=== PATIENT | female | born 1940 | race African-American/Black ===

== ENCOUNTER 2019-02-25 19:23 | Emergency (ER) | payer MEDICARE ==
--- NOTE | 2019-02-25 21:07 | RAD ---
RIGHT SHOULDER FOUR VIEWS: History: Fall. Right shoulder injury. FINDINGS: Acromioclavicular and glenohumeral alignment are maintained. Mild osteophytosis. No acute fracture or dislocation. IMPRESSION: Mild degenerative changes right shoulder. No acute osseous abnormalities are demonstrated. POS: BST
--- NOTE | 2019-02-25 21:08 | RAD ---
LEFT SHOULDER THREE VIEWS: History: Fall. Left shoulder injury. FINDINGS: Acromioclavicular and glenohumeral alignment are maintained. No acute fracture or dislocation. IMPRESSION: No acute osseous abnormalities are demonstrated. POS: BST
--- NOTE | 2019-02-25 21:11 | RAD ---
XR Hip Lt 2-3 View INDICATION: Ground-level fall with left hip pain COMPARISON: None FINDINGS: Bones: There is a valgus impacted left subcapital femoral neck fracture. No additional fracture is ev ident. Hip joint: Moderate degenerative arthrosis of the left hip. SI joints and symphysis pubis: There is mild degenerative change of the visualized left SI joint. Intrapelvic contents: Visualized bowel gas pattern is within normal limits. Surrounding soft tissues: Radiographically normal. IMPRESSION: 1. Valgus impacted subcapital left femoral neck fracture.
--- NOTE | 2019-02-25 21:16 | RAD ---
XR Knee Lt 4 View STANDARD: 02/25/2019 8:02 PM CLINICAL INDICATION: Ground-level fall with left knee pain COMPARISON: None. FINDINGS: Bones: No acute fracture is demonstrated. Joints: There is severe degenerative arthrosis involving the left knee.. Soft Tissue: No acute abnormality.. IMPRESSION: No acute fracture or subluxation demonstrated. Severe left knee osteoarthrosis.
[2019-02-25] MEDS ORDERED: Ondansetron PF 4 MG/2 ML Vial ONE (21:30)
[2019-02-25] MEDS ORDERED: Sodium Chloride 0.9% 1,000 ML ONE (21:30)
[2019-02-25 21:43] LABS: #Basophils 0.1 thou/uL (0.0-0.2); #Eosinphils 0.7 thou/uL (0.0-0.7); #Lymphocytes 2.5 thou/uL (1.20-3.40); #Monocytes 0.6 thou/uL (0.11-0.59); %Basophils 1.6 % (0.0-1.0); %Eosinophils 7.7 % (0.0-10.0); %Lymphocytes 27.6 % (21.0-51.0); %Monocytes 7.1 % (0.0-10.0); %Neutrophils 55.9 % (42.0-75.0); Hemoglobin 12.9 g/dL (12.0-16.0); Mean Corpuscular HGB CONC 30.1 g/dL (32.0-36.0); Mean Corpuscular Hemoglobin 25.9 pg (27.0-31.0); Mean Platelet Volume 10.6 fL (7.4-10.4); Platelet Count 130 thou/uL (130-400); RBC Distribution Width 13.7 % (11.5-14.5); Red Blood Cell (RBC) Count 4.99 mill/uL (4.20-5.40)
[2019-02-25] MEDS ORDERED: Morphine 2 MG/ML SYRINGE ONE ×2 (21:47→22:40)
[2019-02-25 21:52] LABS: Prothrombin Time 13.2 SEC (12.0-14.7)
[2019-02-25 21:53] LABS: PTT 33.7 SEC (22.9-36.1)
[2019-02-25 22:02] LABS: ALT (SGPT) 14 U/L (8-55); AST (SGOT) 19 U/L (5-34); Albumin 3.9 g/dL (3.4-4.8); Alkaline Phosphatase 77 U/L (40-110); Anion Gap 13 mmol/L (10-20); BUN (Urea Nitrogen) 18 mg/dL (9.8-20.1); Bilirubin, Total 0.5 mg/dL (0.2-1.2); Calc. Creatinine Clearance 0 mL/min (70-130); Calcium 9.6 mg/dL (7.8-10.44); Carbon Dioxide 25 mmol/L (23-31); Chloride 107 mmol/L (98-107); Estimated GFR-MDRD 85; Globulin 3.4 g/dL (2.4-3.5); Glucose 99 mg/dL (83-110); Potassium 3.8 mmol/L (3.5-5.1); Protein, Total 7.3 g/dL (6.0-8.3); Sodium 141 mmol/L (136-145)
[2019-02-25 23:46] LABS: Bilirubin Negative (Negative); Blood, Urine Small (Negative); Clarity Slightly Cloudy (Clear); Glucose, Urine (Dipstick) Negative (Negative); Leukocyte Large (Negative); Nitrite Negative (Negative); Protein, Urine (Dipstick) Negative (Neg-Trace); Urobilinogen 0.2 mg/dL (Less than 2)
[2019-02-25 23:56] LABS: WBC/HPF Greater Than 50 HPF (0-3)
[2019-02-25 23:57] LABS: Bacteria/HPF 1+ HPF (None Seen)
== END 2019-02-25 23:34 | disposition short-term general hospital (02) ==
LOC: MADERS 19:23
DX: S72.012A Unspecified intracapsular fracture of left femur, initial encounter for closed fracture (principal); I10 Essential (primary) hypertension; Z79.899 Other long term (current) drug therapy; W18.30XA Fall on same level, unspecified, initial encounter
CPT/HCPCS: 80053; 81003; 81015; 85025; 85610; 85730; 96361; 96374; 96375; 96376; J2270; J2405; J7050

== ENCOUNTER 2019-02-28 13:04 | Inpatient (IN) | payer MEDICARE ==
[2019-02-28] MEDS ORDERED: Cyclobenzaprine 10 MG TAB PO PRN (17:40)
[2019-02-28] MEDS ORDERED: traMADol HCl 50 MG TAB PO PRN ×2 (17:40)
[2019-02-28] MEDS: Acetaminophen 500 MG TAB PO SCH (21:16)
[2019-02-28] MEDS: Gabapentin 100 MG CAP PO SCH (21:16)
[2019-02-28] MEDS: Aspirin 81 mg Enteric Coated Tablet PO SCH (21:17)
--- NOTE | 2019-03-01 00:42 | HP ---
PRIMARY CARE PHYSICIAN: Out of [facility]. ORTHOPEDICS: Dr. Mendez. REASON FOR ADMISSION: [facility] for rehab. HISTORY OF THE PRESENT ILLNESS AND HOSPITAL COURSE: Ms. Aquino is a very pleasant 79-year-old female who had a fall at home from standing position on 02/24/2019. The patient did not go to the hospital right away. The patient reported persistent pain over the left hip area, thus she went to [facility] ER on 02/26/2019 and found out to have a left femoral neck fracture and subsequently admitted. The patient underwent left hip hemiarthroplasty on 02/26/2019, done by Dr. Mendez. The patient had unremarkable postoperative course. She was evaluated by Physical Therapy, Occupational Therapy in [facility] and was found to be a good candidate for further skilled rehab with us. She was transferred to [facility] to continue therapy. The patient reports pain is adequately controlled with current medication. She is on tramadol that she uses p.r.n. She also reports she has not had any bowel movement since the operation, but just had one today upon admission. The patient was noted to have some memory gap. She could not recall the name of her PCP out in [place]. She could not contribute much to her history. She states that she has been sleeping the whole time she got admitted this afternoon in [facility] and her head is "not just right" at this time. No other issues reported at this point. Barton catheter was removed upon admission, and the patient is currently voiding freely with clear output. PAST MEDICAL HISTORY: Hypertension, seasonal allergies. PAST SURGICAL HISTORY: None, except for this recent left hip hemiarthroplasty. ALLERGIES: TO SULFA DRUGS AND LATEX. MEDICATIONS: 1. Lisinopril 10 mg p.o. daily. 2. Gabapentin 200 mg p.o. b.i.d. 3. Cyclobenzaprine 5 mg p.o. t.i.d. p.r.n. 4. Aspirin 81 mg p.o. b.i.d. 5. Acetaminophen 1000 mg p.o. q.6 h. as scheduled. REVIEW OF SYSTEMS: GENERAL: Reports fatigue and general weakness. No fever, no chills, no loss of appetite. HEENT: No acute visual changes or hearing changes. No cold symptoms. RESPIRATORY: No cough, sputum production, pain with breathing, shortness of breath or wheezing. CARDIAC: No chest pain, palpitations, edema, cyanosis, dyspnea on exertion, or paroxysmal nocturnal dyspnea. GI: No nausea, vomiting, abdominal pain, diarrhea, rectal bleeding. GENITOURINARY: No dysuria, hematuria, frequency, urgency or incontinence. MUSCULOSKELETAL: Reports left hip pain as per HPI. No other erythema or joint effusions reported. NEURO: No focal weakness, paresthesia. Reports abnormality of gait secondary to recent orthopedic repair. SKIN: No rashes. No lesions. No pruritus. PSYCH: No depressive symptoms, anxiety, insomnia. LABORATORY DATA: Most recent lab, 02/27/2019, WBC 9.4, hemoglobin 12.3, hematocrit 37.4, platelets 159. Chemistry on 02/26/2019, sodium 140, potassium 3.5, BUN 15 , creatinine 0.72, glucose 89, calcium 8.4, phosphorus 3.2, magnesium 2.2. PHYSICAL EXAMINATION: VITAL SIGNS: Blood pressure 184/82, temperature 98.4, pulse 73, respirations 16 , O2 saturations 92% on room air. GENERAL: The patient is awake, alert, and oriented x3, not in distress, comfortable on exam. Sister is at bedside. HEENT: Normocephalic, atraumatic. PERRL. Intact EOM. Anicteric sclerae. Oral mucosa is moist. Tongue at midline. NECK: Supple. Full range of motion. No LAD. No JVD. No bruit. CHEST: Normal excursion. Clear to auscultation bilaterally. CARDIAC: RRR. Normal S1 and S2. No murmurs. ABDOMEN: Flat, soft. Normoactive bowel sounds. Nondistended, nontender. Negative CVA tenderness bilaterally. EXTREMITIES: No edema. No cyanosis. SKIN: Postoperative site in the left lateral hip is intact and dry. No exudates, no drainage. No surrounding erythema. Mildly tender to touch. NEURO: Nonfocal. Gait, unsteady. ASSESSMENT: 1. Status post mechanical fall with delayed presentation. 2. Status post open reduction and internal fixation of left femoral neck fracture secondary to fall. 3. Hypertension. 4. Deconditioning. 5. Unsteady gait. PLAN: 1. The patient is admitted to [facility] for purposes of skilled rehab status post hip repair. The patient is to continue her current medications as per transfer list. DVT prophylaxis with low-dose aspirin b.i.d. GI prophylaxis with PPI. 2. We will continue to monitor patient's overall status and other chronic medical conditions. We will continue to monitor other conditions that will affect the patient's potential for rehab including constipation and pain management. 3. Staple removal on March 12 per ortho recommendations. 4. To set up a followup appointment with Ortho as recommended. 5. Further recommendations depending on hospital course. CODE STATUS: The patient reports FULL CODE. ESTIMATED LENGTH OF STAY: 2 to 3 weeks. Job ID: [id number] MTDD
[2019-03-01] MEDS: Acetaminophen 500 MG TAB PO SCH ×4 (02:41→21:00)
[2019-03-01] MEDS: Aspirin 81 mg Enteric Coated Tablet PO SCH ×2 (08:50→21:00)
[2019-03-01] MEDS: Lisinopril 10 MG TAB PO SCH (08:51)
[2019-03-01] MEDS: Gabapentin 100 MG CAP PO SCH ×2 (08:52→21:00)
[2019-03-01] MEDS: Polyethylene Glycol 3350 17 GM Packet PER TUBE SCH (08:54)
[2019-03-01] MEDS ORDERED: diphenhydrAMINE 25 MG CAP PO SCH ×2 (23:00→23:15)
[2019-03-02] MEDS: Acetaminophen 500 MG TAB PO SCH ×4 (02:48→19:05)
[2019-03-02] MEDS: Gabapentin 100 MG CAP PO SCH ×2 (09:16→20:54)
[2019-03-02] MEDS: Lisinopril 10 MG TAB PO SCH (09:16)
[2019-03-02] MEDS: Polyethylene Glycol 3350 17 GM Packet PER TUBE SCH (09:16)
[2019-03-02] MEDS: Aspirin 81 mg Enteric Coated Tablet PO SCH ×2 (09:16→20:54)
[2019-03-02] MEDS: Docusate 100 MG CAP PO SCH (20:54)
[2019-03-03] MEDS: Acetaminophen 500 MG TAB PO SCH ×4 (01:43→21:39)
[2019-03-03 05:50] LABS: Anion Gap 13 mmol/L (10-20); BUN (Urea Nitrogen) 16 mg/dL (9.8-20.1); Calc. Creatinine Clearance 84 mL/min (70-130); Calcium 8.5 mg/dL (7.8-10.44); Carbon Dioxide 27 mmol/L (23-31); Chloride 106 mmol/L (98-107); Estimated GFR-MDRD Greater than 90; Glucose 88 mg/dL (83-110); Potassium 3.9 mmol/L (3.5-5.1); Sodium 142 mmol/L (136-145)
[2019-03-03] MEDS: Lisinopril 10 MG TAB PO SCH (08:18)
[2019-03-03] MEDS: Docusate 100 MG CAP PO SCH ×2 (08:19→21:39)
[2019-03-03] MEDS: Gabapentin 100 MG CAP PO SCH ×2 (08:19→21:39)
[2019-03-03] MEDS: Aspirin 81 mg Enteric Coated Tablet PO SCH ×2 (08:19→21:39)
[2019-03-03] MEDS: Polyethylene Glycol 3350 17 GM Packet PER TUBE SCH (08:20)
[2019-03-04] MEDS: Acetaminophen 500 MG TAB PO SCH ×4 (02:32→19:36)
[2019-03-04] MEDS: Polyethylene Glycol 3350 17 GM Packet PER TUBE SCH (08:28)
[2019-03-04] MEDS: Aspirin 81 mg Enteric Coated Tablet PO SCH ×2 (08:29→20:22)
[2019-03-04] MEDS: Lisinopril 10 MG TAB PO SCH (08:29)
[2019-03-04] MEDS: Docusate 100 MG CAP PO SCH ×2 (08:29→20:22)
[2019-03-04] MEDS: Gabapentin 100 MG CAP PO SCH ×2 (08:29→20:22)
[2019-03-05] MEDS: Acetaminophen 500 MG TAB PO SCH ×4 (02:36→20:58)
[2019-03-05] MEDS: Docusate 100 MG CAP PO SCH ×2 (08:28→20:58)
[2019-03-05] MEDS: Lisinopril 10 MG TAB PO SCH (08:28)
[2019-03-05] MEDS: Gabapentin 100 MG CAP PO SCH ×2 (08:28→20:59)
[2019-03-05] MEDS: Aspirin 81 mg Enteric Coated Tablet PO SCH ×2 (08:29→20:58)
[2019-03-05] MEDS: Polyethylene Glycol 3350 17 GM Packet PER TUBE SCH (08:29)
[2019-03-06] MEDS: Acetaminophen 500 MG TAB PO SCH ×4 (03:08→20:32)
[2019-03-06] MEDS: Gabapentin 100 MG CAP PO SCH ×2 (08:20→20:33)
[2019-03-06] MEDS: Polyethylene Glycol 3350 17 GM Packet PER TUBE SCH (08:21)
[2019-03-06] MEDS: Aspirin 81 mg Enteric Coated Tablet PO SCH ×2 (08:21→20:34)
[2019-03-06] MEDS: Docusate 100 MG CAP PO SCH ×2 (08:21→20:33)
[2019-03-06] MEDS: Lisinopril 10 MG TAB PO SCH (08:21)
[2019-03-07] MEDS: Acetaminophen 500 MG TAB PO SCH ×4 (02:08→21:07)
[2019-03-07] MEDS: Polyethylene Glycol 3350 17 GM Packet PER TUBE SCH (08:04)
[2019-03-07] MEDS: Gabapentin 100 MG CAP PO SCH ×2 (08:05→21:07)
[2019-03-07] MEDS: Lisinopril 10 MG TAB PO SCH (08:05)
[2019-03-07] MEDS: Aspirin 81 mg Enteric Coated Tablet PO SCH ×2 (08:05→21:07)
[2019-03-07] MEDS: Docusate 100 MG CAP PO SCH ×2 (08:09→21:07)
[2019-03-07] MEDS ORDERED: Triamcinolone 0.1% Cream 15 GM TUBE TOP PRN (19:25)
[2019-03-08] MEDS: Acetaminophen 500 MG TAB PO SCH ×4 (02:15→21:42)
[2019-03-08] MEDS: Polyethylene Glycol 3350 17 GM Packet PER TUBE SCH (08:45)
[2019-03-08] MEDS: Aspirin 81 mg Enteric Coated Tablet PO SCH ×2 (08:46→21:42)
[2019-03-08] MEDS: Docusate 100 MG CAP PO SCH ×2 (08:46→21:42)
[2019-03-08] MEDS: Lisinopril 10 MG TAB PO SCH (08:46)
[2019-03-08] MEDS: Gabapentin 100 MG CAP PO SCH ×2 (08:46→21:42)
[2019-03-09] MEDS: Acetaminophen 500 MG TAB PO SCH ×4 (03:20→20:59)
[2019-03-09] MEDS: Aspirin 81 mg Enteric Coated Tablet PO SCH ×2 (07:56→20:59)
[2019-03-09] MEDS: Polyethylene Glycol 3350 17 GM Packet PER TUBE SCH (07:56)
[2019-03-09] MEDS: Docusate 100 MG CAP PO SCH ×2 (07:56→21:00)
[2019-03-09] MEDS: Lisinopril 10 MG TAB PO SCH (07:56)
[2019-03-09] MEDS: Gabapentin 100 MG CAP PO SCH ×2 (07:56→21:00)
[2019-03-10] MEDS: Acetaminophen 500 MG TAB PO SCH ×4 (03:07→21:10)
[2019-03-10] MEDS: Gabapentin 100 MG CAP PO SCH ×2 (08:08→21:10)
[2019-03-10] MEDS: Aspirin 81 mg Enteric Coated Tablet PO SCH ×2 (08:09→21:10)
[2019-03-10] MEDS: Polyethylene Glycol 3350 17 GM Packet PER TUBE SCH (08:09)
[2019-03-10] MEDS: Docusate 100 MG CAP PO SCH ×2 (08:09→21:10)
[2019-03-10] MEDS: Lisinopril 10 MG TAB PO SCH (08:09)
[2019-03-11] MEDS: Acetaminophen 500 MG TAB PO SCH ×4 (02:01→20:39)
[2019-03-11] MEDS: Lisinopril 10 MG TAB PO SCH (09:03)
[2019-03-11] MEDS: Aspirin 81 mg Enteric Coated Tablet PO SCH ×2 (09:04→20:39)
[2019-03-11] MEDS: Docusate 100 MG CAP PO SCH ×2 (09:04→20:40)
[2019-03-11] MEDS: Gabapentin 100 MG CAP PO SCH ×2 (09:04→20:40)
[2019-03-11] MEDS: Polyethylene Glycol 3350 17 GM Packet PER TUBE SCH (09:04)
[2019-03-11 11:38] VITALS: BMI 29.5
[2019-03-12] MEDS: Acetaminophen 500 MG TAB PO SCH ×4 (02:02→20:03)
[2019-03-12] MEDS: Docusate 100 MG CAP PO SCH ×2 (08:29→20:05)
[2019-03-12] MEDS: Gabapentin 100 MG CAP PO SCH ×2 (08:29→20:04)
[2019-03-12] MEDS: Lisinopril 10 MG TAB PO SCH (08:29)
[2019-03-12] MEDS: Polyethylene Glycol 3350 17 GM Packet PER TUBE SCH (08:29)
[2019-03-12] MEDS: Aspirin 81 mg Enteric Coated Tablet PO SCH ×2 (08:30→20:05)
[2019-03-13] MEDS: Acetaminophen 500 MG TAB PO SCH ×4 (01:38→20:35)
[2019-03-13] MEDS: Lisinopril 10 MG TAB PO SCH (08:48)
[2019-03-13] MEDS: Docusate 100 MG CAP PO SCH ×2 (08:48→20:29)
[2019-03-13] MEDS: Aspirin 81 mg Enteric Coated Tablet PO SCH ×2 (08:48→20:29)
[2019-03-13] MEDS: Polyethylene Glycol 3350 17 GM Packet PER TUBE SCH (08:48)
[2019-03-13] MEDS: Gabapentin 100 MG CAP PO SCH ×2 (08:49→20:30)
[2019-03-13] MEDS ORDERED: Acetaminophen 500 MG TAB PO PRN (20:13)
[2019-03-14] MEDS: Aspirin 81 mg Enteric Coated Tablet PO SCH ×2 (08:35→21:31)
[2019-03-14] MEDS: Polyethylene Glycol 3350 17 GM Packet PER TUBE SCH (08:36)
[2019-03-14] MEDS: Docusate 100 MG CAP PO SCH ×2 (08:36→21:31)
[2019-03-14] MEDS: Lisinopril 10 MG TAB PO SCH (08:36)
[2019-03-14] MEDS: Gabapentin 100 MG CAP PO SCH (21:31)
[2019-03-15 08:32] VITALS: BP 146/75; TEMP 97.4
[2019-03-15] MEDS: Lisinopril 10 MG TAB PO SCH (09:30)
[2019-03-15] MEDS: Aspirin 81 mg Enteric Coated Tablet PO SCH (09:30)
[2019-03-15] MEDS: Docusate 100 MG CAP PO SCH (09:30)
[2019-03-15] MEDS: Polyethylene Glycol 3350 17 GM Packet PER TUBE SCH (09:31)
--- NOTE | 2019-03-17 11:52 | DIS ---
DATE OF ADMISSION: 02/28/2019 DATE OF DISCHARGE: 03/15/2019 ORTHOPEDIC: Dr. Mendez. PRIMARY CARE PHYSICIAN: Out of town. REASON FOR ADMISSION: [facility] for skilled rehab. DIAGNOSES: 1. Status post mechanical fall with delayed presentation. 2. Left femoral neck fracture secondary to fall. 3. Status post open reduction and internal fixation of the left femoral neck fracture. 4. Hypertension. 5. Neuropathic pain. 6. Deconditioning. 7. Unsteady gait. DISPOSITION: Home. CONDITION ON DISCHARGE: Stable. DISCHARGE INSTRUCTIONS: 1. Diet: Low salt, low fat. 2. Activity: To use rolling walker at all times. 3. Fall precaution: Secondary to unsteadiness of gait. 4. Followup: a. Follow up with PCP or Dr. Stephenson in 1 to 2 weeks, sooner with concern. b. Follow up with Dr. Mendez in 4 weeks or as previously scheduled. 5. Refer to outpatient rehab at [facility] and get appointment prior to discharge. HOME MEDICATIONS: 1. Acetaminophen mg p.o. q.6 hours p.r.n. 2. Aspirin 81 mg p.o. b.i.d. for DVT prophylaxis. 3. Docusate 100 mg p.o. b.i.d. p.r.n. 4. Gabapentin 100 mg p.o. at bedtime. 5. Lisinopril 10 mg p.o. daily. 6. Polyethylene glycol 17 g p.o. at bedtime. HISTORY OF THE PRESENT ILLNESS AND HOSPITAL COURSE: Ms. Aquino is a very pleasant 79-year-old female with history of hypertension and neuropathic pain of both feet. The patient had a fall at home on 02/24/2019. The patient did not go to the hospital right away. The patient reported persistent pain over the left hip area that she went to [facility] ER on 02/26/2019, and found out to have a left femoral neck fracture. The patient underwent left hip hemiarthroplasty on 02/26/2019, done by Dr. Mendez. The patient had an unremarkable postoperative course. She was evaluated by Physical Therapy and Occupational Therapy at [facility] and was found to be a good candidate for further skilled rehab, thus she was transferred to [facility] for therapy. The patient did well in therapy. Her pain was adequately controlled with Tylenol alone. Her blood pressure has been stable with low-dose lisinopril. The patient did not have any significant pain reported over the course. Her Neurontin was weaned off to a bedtime dose and did well. She was walking 500 feet using rolling walker with contact guard assist prior to discharge. The patient continued to improve with strength and endurance prior to discharge. She is recommended to continue therapy at home. The patient and family requested to continue therapy with outpatient therapy at [facility]. The patient has had reported three falls in the last year including this time, thus the patient was recommended to use her rolling walker all the time until further recommendations from Ortho. The patient lives alone in her own place surrounded by her kids along the neighborhood. At this time, the patient was recommended to have supervision at home, so family decided the patient to stay at her son's place. I had a lengthy discussion with the family including her two daughters and one son in different occasions prior to discharge. We discussed the patient's overall condition, precautionary measures for fall and modified activities at home. We also discussed her current medications. There was an apparent concern from the family regarding the patient's memory gap. We will discuss this further in an outpatient visit, the patient and family would like to follow up with me in the clinic at [facility] at this time. All the family's questions and concerns were answered to their satisfaction. PHYSICAL EXAMINATION: VITAL SIGNS: Prior to discharge; blood pressure 146/75, temperature 97.4, pulse 85, respirations 16, O2 saturations 96% on room air. Weight 181 pounds. GENERAL: The patient is awake, alert, and oriented x3. Not in distress. HEENT: Normocephalic, atraumatic. PERRL. Intact EOM. Anicteric sclerae. Oral mucosa is moist. NECK: Supple with full range of motion. No LAD. CHEST: Normal excursion. Clear to auscultation bilaterally. CARDIAC: RRR. Normal S1, S2. ABDOMEN: Flat, soft. Normoactive bowel sounds. Nondistended, nontender. EXTREMITIES: No edema. No cyanosis. Limited range of motion of the left hip. No joint effusion. No erythema noted. SKIN: Warm and moist. Postoperative site on the left lateral hip is closed, dry, and healing in appearance. No drainage. No exudates. No periwound erythema noted. Nontender to touch. NEUROLOGIC: Nonfocal. DTRs 2+. Gait, unsteady, requiring a rolling walker both for transfers and ambulation. PSYCH: Appears calm, appropriate demeanor and affect. She is happy and very interactive. TIME SPENT: Time spent on this discharge in examining the patient, coordinating care, counseling, and lengthy discussion with the family regarding the patient's disposition and discharge plan 38 minutes. Job ID: [id number]
== END 2019-03-15 15:15 | disposition home or self-care (01) | DRG 561 ==
LOC: MADMS 13:09
PROVIDERS: ADMIT Family Medicine; ATTEND Family Medicine
DX: S72.002D Fracture of unspecified part of neck of left femur, subsequent encounter for closed fracture with routine healing (principal); R53.81 Other malaise; R26.81 Unsteadiness on feet; I10 Essential (primary) hypertension; Z88.2 Allergy status to sulfonamides; Z91.040 Latex allergy status; Z79.899 Other long term (current) drug therapy; Z79.82 Long term (current) use of aspirin; W18.30XD Fall on same level, unspecified, subsequent encounter
CPT/HCPCS: 80048; Q0163

== ENCOUNTER 2020-04-26 19:45 | Emergency (ER) | payer MEDICARE ==
--- NOTE | 2020-04-26 20:24 | RAD ---
RADIOGRAPH CHEST 1 VIEW: DATE: 04/26/2020 HISTORY: 80-year-old female status post acute chest trauma from fall FINDINGS: There are no airspace densities, pulmonary edema, pneumothorax, or cardiomegaly. The lateral costophr enic angles are sharp. IMPRESSION: No acute cardiopulmonary findings.
[2020-04-26 20:36] LABS: #Lymphocytes 1.4 thou/uL (1.20-3.40); #Monocytes 0.5 thou/uL (0.11-0.59); #Neutrophils 3.1 thou/uL (1.40-6.50); %Basophils 0.4 % (0.0-1.0); %Eosinophils 0.1 % (0.0-10.0); %Lymphocytes 27.3 % (21.0-51.0); %Monocytes 10.2 % (0.0-10.0); Hemoglobin 13.6 g/dL (12.0-16.0); Mean Corpuscular HGB CONC 31.9 g/dL (32.0-36.0); Mean Corpuscular Hemoglobin 26.4 pg (27.0-31.0); Mean Corpuscular Volume 82.8 fL (78.0-98.0); Mean Platelet Volume 10.2 fL (7.4-10.4); Platelet Count 164 thou/uL (130-400); RBC Distribution Width 12.7 % (11.5-14.5); Red Blood Cell (RBC) Count 5.16 mill/uL (4.20-5.40)
[2020-04-26 20:51] LABS: ALT (SGPT) 13 U/L (8-55); AST (SGOT) 25 U/L (5-34); Albumin 3.7 g/dL (3.4-4.8); Alkaline Phosphatase 56 U/L (40-110); Anion Gap 16 mmol/L (10-20); BUN (Urea Nitrogen) 14 mg/dL (9.8-20.1); Bilirubin, Total 0.6 mg/dL (0.2-1.2); Calc. Creatinine Clearance 0 mL/min (70-130); Calcium 8.5 mg/dL (7.8-10.44); Carbon Dioxide 25 mmol/L (23-31); Chloride 99 mmol/L (98-107); Globulin 3.5 g/dL (2.4-3.5); Glucose 119 mg/dL (83-110); Potassium 3.2 mmol/L (3.5-5.1); Protein, Total 7.2 g/dL (6.0-8.3); Sodium 137 mmol/L (136-145)
--- NOTE | 2020-04-26 20:52 | CT ---
CT BRAIN NONCONTRAST: DATE: 04/26/2020 HISTORY: 80-year-old female status post acute head trauma from fall FINDINGS: There is no evidence of acute intra-axial or extra-axial hemorrhage. There is no midline shift or any other mass effect. There is no extra-axial fluid collection. There is no evidence of obstructive hydrocephalus. Calvarium is intact. IMPRESSION: No acute intracranial findings.
[2020-04-26 21:13] LABS: Bilirubin Negative (Negative); Blood, Urine Small (Negative); Clarity Slightly Cloudy (Clear); Glucose, Urine (Dipstick) Negative (Negative); Ketone, Urine 15 mg/dL (Negative); Leukocyte Negative (Negative); Nitrite Negative (Negative); Protein, Urine (Dipstick) 30 mg/dL (Neg-Trace); Specific Gravity, Urine 1.025 (1.005-1.030); pH, Urine 6.5 (5.0-9.0)
[2020-04-26 21:21] LABS: Bacteria/HPF Rare-Few HPF (None Seen); Mucous/LPF 4+ LPF (<2+); Squamous Epithelial 0-3 HPF (0-3); WBC/HPF None Seen HPF (0-3)
[2020-04-26] MEDS ORDERED: Potassium Chloride 20 MEQ TAB ONE (21:23)
== END 2020-04-26 21:30 | disposition home or self-care (01) ==
LOC: MADERS 19:45
DX: Z04.3 Encounter for examination and observation following other accident (principal); E87.6 Hypokalemia; E86.0 Dehydration; I10 Essential (primary) hypertension; W01.0XXA Fall on same level from slipping, tripping and stumbling without subsequent striking against object, initial encounter
CPT/HCPCS: 36415; 51701; 70450; 71045; 80053; 81003; 81015; 83880; 84484; 85025; 93005

== ENCOUNTER 2020-07-24 22:58 | Emergency (ER) | payer MEDICARE, SELFPAY ==
[2020-07-24] MEDS ORDERED: Acetaminophen 500 MG TAB ONE (23:31)
[2020-07-24 23:34] LABS: Hemoglobin 13.6 g/dL (12.0-16.0); Mean Corpuscular HGB CONC 32.2 g/dL (32.0-36.0); Mean Corpuscular Hemoglobin 27.2 pg (27.0-31.0); Mean Corpuscular Volume 84.5 fL (78.0-98.0); Platelet Count 166 thou/uL (130-400); RBC Distribution Width 13.7 % (11.5-14.5); Red Blood Cell (RBC) Count 4.98 mill/uL (4.20-5.40); White Blood Cell (WBC) Count 13.3 thou/uL (4.8-10.8)
[2020-07-24 23:37] LABS: Eosinophils 1 % (0-10); Lymphocytes 12 % (21-51); MDiff Complete? YES; Monocytes 7 % (0-10); Neutrophil 80 % (42-75); Platelet Morphology Comment Appears Adequate; RBC Morphology Normal
[2020-07-24 23:44] LABS: ALT (SGPT) 13 U/L (8-55); AST (SGOT) 16 U/L (5-34); Albumin 3.8 g/dL (3.4-4.8); Alkaline Phosphatase 63 U/L (40-110); Anion Gap 16 mmol/L (10-20); BUN (Urea Nitrogen) 15 mg/dL (9.8-20.1); Bilirubin, Total 0.7 mg/dL (0.2-1.2); CK (CPK) 162 U/L (29-168); Calc. Creatinine Clearance 0 mL/min (70-130); Calcium 8.9 mg/dL (7.8-10.44); Carbon Dioxide 22 mmol/L (23-31); Chloride 100 mmol/L (98-107); Globulin 3.4 g/dL (2.4-3.5); Glucose 145 mg/dL (83-110); Magnesium 1.9 mg/dL (1.6-2.6); Potassium 3.7 mmol/L (3.5-5.1); Protein, Total 7.2 g/dL (5.8-8.1); Sodium 134 mmol/L (136-145)
[2020-07-25 00:09] LABS: Bilirubin Negative (Negative); Blood, Urine Moderate (Negative); Clarity Clear (Clear); Glucose, Urine (Dipstick) Negative (Negative); Ketone, Urine Negative (Negative); Leukocyte Negative (Negative); Nitrite Negative (Negative); Protein, Urine (Dipstick) Negative (Neg-Trace); Specific Gravity, Urine 1.025 (1.005-1.030); Urobilinogen 0.2 mg/dL (Less than 2)
[2020-07-25 00:15] LABS: Bacteria/HPF Rare-Few HPF (None Seen); Squamous Epithelial 0-3 HPF (0-3); WBC/HPF 0-3 HPF (0-3)
== END 2020-07-25 00:42 | disposition home or self-care (01) ==
LOC: MADERS 22:58
DX: R50.83 Postvaccination fever (principal); T50.B95A Adverse effect of other viral vaccines, initial encounter; R41.82 Altered mental status, unspecified; R53.1 Weakness; I10 Essential (primary) hypertension
CPT/HCPCS: 36415; 51701; 70450; 71045; 80053; 81003; 81015; 82550; 83605; 83735; 83880; 84484; 85025; 87040; 87086; 93005; 94760

== ENCOUNTER 2025-04-11 18:20 | Emergency (ER) | payer MEDICARE ==
[2025-04-11] MEDS ORDERED: Acetaminophen 325 MG TAB ONE (18:47)
[2025-04-11 19:09] LABS: #Basophils 0.1 thou/uL (0.0-0.2); #Eosinophils 0.0 thou/uL (0.0-0.7); #Lymphocytes 1.2 thou/uL (1.20-3.40); #Monocytes 0.7 thou/uL (0.11-0.59); #Neutrophils 6.7 thou/uL (1.40-6.50); %Basophils 0.8 % (0.0-1.0); %Eosinophils 0.1 % (0.0-10.0); %Lymphocytes 13.5 % (21.0-51.0); %Monocytes 8.0 % (0.0-10.0); %Neutrophils 77.6 % (42.0-75.0); Hematocrit 33.1 % (36.0-47.0); Hemoglobin 9.4 g/dL (12.0-16.0); Mean Corpuscular Hemoglobin 21.4 pg (27.0-31.0); Mean Corpuscular Volume 75.5 fl (78.0-98.0); Platelet Count 320 10x3/uL (130-400); Red Blood Cell (RBC) Count 4.39 mill/uL (4.20-5.40); White Blood Cell (WBC) Count 8.7 10x3/uL (4.8-10.8)
[2025-04-11 19:15] LABS: INR-International Normal Ratio 1.2; PTT 36.3 sec (22.9-36.1); Prothrombin Time 14.9 sec (12.0-14.7)
[2025-04-11 19:25] LABS: ALT (SGPT) Less than 7 U/L (Less than 34); AST (SGOT) 17 U/L (11-34); Albumin 2.8 g/dL (3.1-4.5); Alkaline Phosphatase 75 U/L (40-110); Anion Gap 16 mmol/L (10-20); BUN (Urea Nitrogen) 11 mg/dL (9.8-20.1); Bilirubin, Total 0.5 mg/dL (0.3-1.2); Calc. Creatinine Clearance 0 mL/min (70-130); Calcium 8.6 mg/dL (7.8-10.44); Carbon Dioxide 23 mmol/L (23-31); Chloride 104 mmol/L (98-107); Globulin 4.7 g/dL (2.4-3.5); Glucose 115 mg/dL (83-110); Potassium 3.4 mmol/L (3.5-5.1); Sodium 140 mmol/L (136-145)
[2025-04-11 19:37] LABS: Anisocytosis SLIGHT = 6-15 cells (100X) (0-5/hpf); Target Cells SLIGHT = 2-5 cells (100X) (0-1/hpf)
[2025-04-11 19:38] LABS: Microcytosis SLIGHT = 6-15 cells (100X) (0-5/hpf); Polychromasia SLIGHT = 2-3 cells (100X) (0-2/hpf)
[2025-04-11 19:39] LABS: Platelet Adequacy Comment Appears Adequate
[2025-04-11 20:31] LABS: Glucose, Urine (Dipstick) Negative (Negative); Leukocyte Trace (Negative); Protein, Urine (Dipstick) Negative (Neg-Trace); Specific Gravity, Urine 1.015 (1.005-1.030)
[2025-04-11 20:33] LABS: Bacteria/HPF Rare-Few HPF (None Seen); CAUTI Indications for Culture Fever or rigors; Mucous/LPF 1+ LPF (<2+); WBC/HPF 0-3 HPF (0-3)
[2025-04-11 20:34] LABS: Urine Culture Reflex No No
[2025-04-11] MEDS ORDERED: Potassium Bicarbonate/Cit Ac 20 MEQ TAB ONE (21:37)
== END 2025-04-11 22:46 | disposition home or self-care (01) ==
LOC: MADERS 18:20
DX: R50.9 Fever, unspecified (principal); E87.6 Hypokalemia; D50.9 Iron deficiency anemia, unspecified; R31.29 Other microscopic hematuria; R09.89 Other specified symptoms and signs involving the circulatory and respiratory systems; I10 Essential (primary) hypertension; Z79.899 Other long term (current) drug therapy
CPT/HCPCS: 36415; 51701; 71045; 80053; 81001; 85025; 85610; 85730; 93005; 94760